=== PATIENT | male | born 1960 | race Caucasian/White ===

== ENCOUNTER → 2017-08-02 | Outpatient (CLI) | payer BC ==
--- NOTE | 2017-08-02 17:45 | XR ---
EXAMINATION TYPE: XR clavicle bilateral DATE OF EXAM: 08/02/2017 COMPARISON: NONE HISTORY: Left clavicle injury TECHNIQUE: 4 views FINDINGS: 2 views of each clavicle were obtained. There is mild spurring at the AC joints. Joint spaces are normal. 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 I see no fracture of the clavicles. IMPRESSION: No acute abnormality of the left and right clavicle. Hypertrophic spurring is present at the AC joint.
--- NOTE | 2017-08-02 17:45 | XR ---
EXAMINATION TYPE: XR chest 2V DATE OF EXAM: 08/02/2017 COMPARISON: NONE HISTORY: Cough and chest pain TECHNIQUE: Frontal and lateral views of the chest are obtained. FINDINGS: Heart and mediastinum are normal. Lungs are clear. Diaphragm is normal. Bony thorax is int act. There is no heart failure. IMPRESSION: Normal chest
== END | disposition home or self-care (01) ==
LOC: RADXRYALE 17:12
PROVIDERS: ATTEND Internal Medicine
DX: M89.312 Hypertrophy of bone, left shoulder (principal); J20.9 Acute bronchitis, unspecified
CPT/HCPCS: 71046